=== PATIENT | female | born 1990 | race Caucasian/White ===

== ENCOUNTER 2016-08-08 16:47 | Emergency (ER) | payer OTHER ==
[~2016-08-08] VITALS: Wt 64.0 kg
[~2016-08-08 16:47] MED LIST: NO MEDS
[2016-08-08 17:17] LABS: URINE BLOOD (Dip) POC 2+ (NEGATIVE)
[2016-08-08] MEDS ORDERED: PHEN-538 PO (17:48)
[2016-08-08] MEDS ORDERED: CEPH-443 PO (17:48)
--- NOTE | 2016-08-08 17:50 | ERD ---
ER Documentation Chief Complaint Date/Time DATE: 08/08/16 TIME: 17:49 Chief Complaint DYSURIA FOR THE PAST FEW DAYS. NO N/V. NO DIARRHEA . NO BACK PAIN HPI This 25-year-old female presents with dysuria for 3 days and urgency. She denies fevers, vomiting, flank pain, abdominal pain. ROS All systems reviewed and are negative except as per history of present illness. Medications Home Meds Active Scripts Phenazopyridine Hcl* (Pyridium*) 200 Mg Tab, 200 MG PO TID Y for URINARY PAIN, # 6 TAB Prov:WENDI BOWMNA MD 08/08/16 Cephalexin* (Keflex*) 500 Mg Capsule, 500 MG PO QID for 5 Days, CAP Prov:WENDI BOWMAN MD 08/08/16 Reported Medications [No Meds] No Conflict Check 07/03/12 Allergies Allergies: Coded Allergies: No Known Allergy (Verified , 07/03/12) PMhx/Soc History of Surgery: No Anesthesia Reaction: No Hx Neurological Disorder: No Hx Respiratory Disorders: No Hx Cardiac Disorders: No Hx Psychiatric Problems: No Hx Miscellaneous Medical Probl: No Hx Alcohol Use: No Hx Substance Use: No Hx Tobacco Use: Yes Smoking Status: Never smoker Physical Exam Vitals Vital Signs Date Time Temp Pulse Resp B/P Pulse Ox O2 Delivery O2 Flow Rate FiO2 08/08/16 16:52 98.5 86 20 105/62 99 Physical Exam Const: [] Alert, [id number] Head: Atraumatic Eyes: Normal Conjunctiva ENT: Normal External Ears, Nose and Mouth. Neck: Full range of motion..~ No meningismus. Resp: Clear to auscultation bilaterally Cardio: Regular rate and rhythm, no murmurs Abd: Soft, non tender, non distended. Normal bowel sounds Skin: No petechiae or rashes Back: No midline or flank tenderness Ext: No cyanosis, or edema Neur: Awake and alert Psych: Normal Mood and Affect Results 24 hrs Laboratory Tests Test 08/08/16 17:21 Bedside Urine Blood 2+ Bedside Urine Glucose (UA) Negative Bedside Urine Ketones (LAB) Negative Bedside Urine Leukocyte Esterase (L 2+ Bedside Urine Nitrite (LAB) Negative Bedside Urine Protein (LAB) 2+ Bedside Urine pH (LAB) 6.0 Current Medications Medications (Trade) Dose Ordered Sig/Faizan Route PRN Reason Start Time Stop Time Status Last Admin Dose Admin Cephalexin (Keflex) 500 mg ONCE ONCE PO 08/08/16 18:00 08/08/16 18:01 Phenazopyridine HCl (Pyridium) 200 mg ONCE ONCE PO 08/08/16 18:00 08/08/16 18:01 Procedures/MDM Urine shows positive leukocytes and hemoglobin. Nitrites and glucose are negative. HCG is negative. Patient was given Keflex and Pyridium here in the ED L be discharged home with a course of Keflex, Pyridium, instructions for clear fluids and instructions to return for fevers, vomiting, new worsening symptoms. There is no current evidence to suggest pyelonephritis or sepsis. The patient was stable with no new complaints during the ER course. Clinically, there is no current evidence to suggest meningitis, sepsis, acute abdomen, pneumonia, acute coronary syndrome, pulmonary embolism, or any other emergent condition appearing to require further evaluation or hospitalization. The patient should certainly return for any new or worsening symptoms per the aftercare instructions. They should otherwise follow-up with her primary care doctor for reevaluation this week. Departure Diagnosis: Primary Impression: Cystitis Condition: Stable Patient Instructions: Cystitis Additional Instructions: Urine shows infection today. Drink plenty of fluids. Recheck for fevers, vomiting, new or worsening symptoms WENDI BOWMAN MD Aug 08, 2016 17:50
[2016-08-08] MEDS ORDERED: PHENAZOPYRIDINE 100 MG TAB PO ONE (18:00)
[2016-08-08] MEDS ORDERED: CEPHALEXIN 500 MG CAP PO ONE (18:00)
== END 2016-08-08 18:02 | disposition home or self-care (01) ==
LOC: FTE 16:47
DX: N30.90 Cystitis, unspecified without hematuria (principal); Z87.891 Personal history of nicotine dependence
CPT/HCPCS: 81003; Z7502; Z7610; 99283

== ENCOUNTER 2016-12-06 12:40 | Emergency (ER) | END 2016-12-06 14:21 | disposition home or self-care (01) | DX: N30.00 Acute cystitis without hematuria (principal); F17.210 Nicotine dependence, cigarettes, uncomplicated | CPT/HCPCS: 81003; Z7502 ==

== ENCOUNTER 2017-02-05 04:35 | Emergency (ER) | payer OTHER ==
[~2017-02-05] VITALS: Wt 64.0 kg
[~2017-02-05 04:35] MED LIST changes: +CEPH-443 PO; +NITR-58 PO; +PHEN-538 PO
[2017-02-05] MEDS ORDERED: ACETAMINOPHEN 500 MG TAB PO STA (05:00)
[2017-02-05 05:37] LABS: URINE BLOOD (Dip) POC 3+ (NEGATIVE)
[2017-02-05] MEDS ORDERED: ACET325T33 PO (05:54)
[2017-02-05 06:23] LABS: ADD UMIC YES; UR ASCORBIC ACID NEGATIVE (NEGATIVE); UR BACTERIA FEW /HPF (NONE SEEN); UR BILIRUBIN (Dip) NEGATIVE (NEGATIVE); UR BLOOD (Dip) 3+ mg/dL (NEGATIVE); UR CLARITY CLOUDY (CLEAR); UR COLOR YELLOW (YELLOW); UR GLUCOSE (Dip) NEGATIVE (NEGATIVE); UR KETONES (Dip) NEGATIVE (NEGATIVE); UR LEUKOCYTE ESTERASE (Dip) 1+ Leu/ul (NEGATIVE); UR MUCUS FEW /HPF (NONE SEEN); UR NITRITE (Dip) NEGATIVE (NEGATIVE); UR RBC 7 /HPF (0-5); UR SPECIFIC GRAVITY (Dip) 1.025 (1.003-1.030); UR SQUAMOUS EPITHELIAL CELL MANY /HPF (FEW); UR TOTAL PROTEIN (Dip) NEGATIVE (NEGATIVE); UR UROBILINOGEN (Dip) NEGATIVE (NEGATIVE)
--- NOTE | 2017-02-07 20:17 | ERA ---
ER Documentation Chief Complaint Date/Time DATE: 02/07/17 TIME: 20:15 Chief Complaint Pelvic Pain and Vaginal Bleed HPI 26-year-old female presents to the emergency department with pelvic pain that started a couple hours prior to being seen has resolved now, patient states the pain is mild. Patient says that she is currently on her menstrual period. Patient denies any sexual activity at this time, denies any vaginal discharge. Denies fevers. Denies any nausea vomiting diarrhea constipation ROS All systems reviewed and are negative except as per history of present illness. Medications Home Meds Active Scripts Acetaminophen* (Tylenol*) 325 Mg Tablet, 2 TAB PO Q4 Y for PAIN AND OR ELEVATED TEMP, #20 TAB Prov:ROMAINE MOHAMUD PA-C 02/05/17 Nitrofurantoin Monohyd Macrocr* (Macrobid*) 100 Mg Capsr, 100 MG PO BID for 7 Days, CAP Prov:BALTAZAR DRISCOLL PA-C 12/06/16 Phenazopyridine Hcl* (Pyridium*) 200 Mg Tab, 200 MG PO TID Y for URINARY PAIN, # 6 TAB Prov:WENDI BOWMAN MD 08/08/16 Cephalexin* (Keflex*) 500 Mg Capsule, 500 MG PO QID for 5 Days, CAP Prov:WENDI BOWMAN MD 08/08/16 Reported Medications [No Meds] No Conflict Check 07/03/12 Allergies Allergies: Coded Allergies: No Known Allergy (Verified , 07/03/12) PMhx/Soc History of Surgery: Yes () Anesthesia Reaction: No Hx Neurological Disorder: No Hx Respiratory Disorders: No Hx Cardiac Disorders: No Hx Psychiatric Problems: No Hx Miscellaneous Medical Probl: No Hx Alcohol Use: No Hx Substance Use: No Hx Tobacco Use: Yes Smoking Status: Light tobacco smoker Physical Exam Vitals Vital Signs Date Time Temp Pulse Resp B/P Pulse Ox O2 Delivery O2 Flow Rate FiO2 02/05/17 04:48 97.7 65 20 104/52 99 Physical Exam Const: [] Head: Atraumatic Eyes: Normal Conjunctiva ENT: Normal External Ears, Nose and Mouth. Neck: Full range of motion..~ No meningismus. Resp: Clear to auscultation bilaterally Cardio: Regular rate and rhythm, no murmurs Abd: Soft, non tender, non distended. Normal bowel sounds Skin: No petechiae or rashes Back: No midline or flank tenderness Ext: No cyanosis, or edema Neur: Awake and alert Psych: Normal Mood and Affect Results 24 hrs Laboratory Tests Test 02/05/17 05:10 02/05/17 05:43 Urine Color YELLOW Urine Clarity CLOUDY Urine pH 5.0 Urine Specific [place] 1.025 Urine Ketones NEGATIVEmg/dL Urine Nitrite NEGATIVEmg/dL Urine Bilirubin NEGATIVEmg/dL Urine Urobilinogen NEGATIVEmg/dL Urine Leukocyte Esterase 1+Malini/ul Urine Microscopic RBC 7/HPF Urine Microscopic WBC 12/HPF Urine Squamous Epithelial Cells MANY/HPF Urine Calcium Oxalate Crystals MANY/HPF Urine Bacteria FEW/HPF Urine Mucus FEW/HPF Urine Hemoglobin 3+mg/dL Urine Glucose NEGATIVEmg/dL Urine Total Protein NEGATIVEmg/dl Bedside Urine pH (LAB) 5.5 Bedside Urine Protein (LAB) 1+ Bedside Urine Glucose (UA) Negative Bedside Urine Ketones (LAB) Negative Bedside Urine Blood 3+ Bedside Urine Nitrite (LAB) Negative Bedside Urine Leukocyte Esterase (L Trace Current Medications Medications (Trade) Dose Ordered Sig/Faizan Route PRN Reason Start Time Stop Time Status Last Admin Dose Admin Acetaminophen (Tylenol Tab) 1,000 mg ONCE STAT PO 02/05/17 05:00 02/05/17 05:01 DC 02/05/17 05:16 Procedures/MDM 26-year-old female presents to emergency department with pelvic pain and vaginal bleeding since she is on her menstrual period, I have a low suspicion for ovarian torsion, urinary tract infection, ruptured ovarian cyst. Since patient's pain has significantly improved and ultrasound was not done. Urinalysis did not show any evidence of infection. Urine is negative. Patient stable to be discharged home with prescription for Tylenol. I have discussed with her to return to ER for any worsening signs and knows where she understands and agrees this plan Departure Diagnosis: Primary Impression: Acute pain in female pelvis Condition: Stable Patient Instructions: Pelvic Pain, Unknown Cause Referrals: NO PRIMARY,CARE PHYSICIAN Additional Instructions: FOLLOW UP WITH YOUR PRIMARY CARE PHYSICIAN TOMORROW.Return to this facility if you are not improving as expected. Return to this facility if you are not improving as expected. Take all medicines as directed. ROMAINE MOHAMUD PA-C Feb 07, 2017 20:17
== END 2017-02-05 06:17 | disposition home or self-care (01) ==
LOC: FTE 04:35
DX: R10.2 Pelvic and perineal pain (principal); F17.210 Nicotine dependence, cigarettes, uncomplicated
CPT/HCPCS: 81001; Z7502; Z7610; 81003; 99283

== ENCOUNTER 2017-08-15 03:38 | Emergency (ER) | END 2017-08-15 04:15 | disposition home or self-care (01) ==

== ENCOUNTER 2018-09-20 14:27 | Emergency (ER) | payer MEDICAID, OTHER ==
[~2018-09-20] VITALS: Ht 167.6 cm; Wt 58.0 kg
[~2018-09-20 14:27] MED LIST changes: +ACET325T33 PO
[2018-09-20 14:44] VITALS: Ht 167.6 cm; Wt 58.0 kg
[2018-09-20] MEDS ORDERED: CEPH-443 PO (16:16)
[2018-09-20] MEDS ORDERED: IBUP-1561 PO (16:16)
--- NOTE | 2018-09-20 16:18 | ERD ---
ER Documentation Chief Complaint Chief Complaint pt bib self with c/o painful urination since Wednesday HPI 28-year-old female presents with dysuria for the last 4 days. She has complaints of right sided back pain as well. She states that she had a tactile fever but has no fever triage. She denies vomiting, anterior abdominal pain. She denies vaginal discharge or bleeding or . Patient is admitted methamphetamine user. ROS All systems reviewed and are negative except as per history of present illness. Medications Home Meds Active Scripts Ibuprofen* (Motrin*) 400 Mg Tab, 400 MG PO Q6, #15 TAB Prov:WENDI BOWMAN MD 09/20/18 Cephalexin* (Keflex*) 500 Mg Capsule, 500 MG PO BID for 10 Days, CAP Prov:WENDI BOWMAN MD 09/20/18 Acetaminophen* (Tylenol*) 325 Mg Tablet, 2 TAB PO Q4 PRN for PAIN AND OR ELEVATED TEMP, #20 TAB Prov:ROMAINE MOHAMUDC 02/05/17 Nitrofurantoin Monohyd Macrocr* (Macrobid*) 100 Mg Capsr, 100 MG PO BID for 7 Days, CAP Prov:BALTAZAR DRISCOLL PA-C 12/06/16 Phenazopyridine Hcl* (Pyridium*) 200 Mg Tab, 200 MG PO TID PRN for URINARY PAIN, #6 TAB Prov:WENDI BOWMAN MD 08/08/16 Cephalexin* (Keflex*) 500 Mg Capsule, 500 MG PO QID for 5 Days, CAP Prov:WENDI BOWMAN MD 08/08/16 Reported Medications [No Meds] No Conflict Check 07/03/12 Allergies Allergies: Coded Allergies: No Known Allergy (Verified , 07/03/12) PMhx/Soc History of Surgery: Yes () Anesthesia Reaction: No Hx Neurological Disorder: No Hx Respiratory Disorders: No Hx Cardiac Disorders: No Hx Psychiatric Problems: No Hx Miscellaneous Medical Probl: Yes (UTIs) Hx Alcohol Use: Yes (DAILY ETOH DRINKER) Hx Substance Use: No Hx Tobacco Use: Yes Smoking Status: Current every day smoker FmHx Family History: No diabetes, No coronary disease, No other Physical Exam Vitals Vital Signs Date Temp Pulse Resp B/P (MAP) Pulse Ox O2 O2 Flow FiO2 Time Delivery Rate 09/20/18 98.3 96 16 108/61 98 14:44 (77) Physical Exam Const: No acute distress Head: Atraumatic Eyes: Normal Conjunctiva ENT: Normal External Ears, Nose and Mouth. Neck: Full range of motion. No meningismus. Resp: Clear to auscultation bilaterally Cardio: Regular rate and rhythm, no murmurs Abd: Soft, non tender, non distended. Normal bowel sounds Skin: No petechiae or rashes Back: No midline or flank tenderness with minimal tenderness right L2-L3 paraspinous area. No gross flank tenderness. Ext: No cyanosis, or edema Neur: Awake and alert Psych: Normal Mood and Affect Results 24 hrs Laboratory Tests Test 09/20/18 15:36 09/20/18 15:39 POC Beta HCG, Qualitative NEGATIVE Urine Color YELLOW Urine Clarity CLOUDY Urine pH 6.0 Urine Specific [place] 1.009 Urine Ketones NEGATIVE mg/dL Urine Nitrite NEGATIVE mg/dL Urine Bilirubin NEGATIVE mg/dL Urine Urobilinogen 2+ mg/dL Urine Leukocyte Esterase 3+ Malini/ul Urine Microscopic RBC 12 /HPF Urine Microscopic WBC > 182 /HPF Urine Squamous Epithelial Cells MODERATE /HPF Urine Bacteria MANY /HPF Urine Mucus FEW /HPF Urine Hemoglobin 3+ mg/dL Urine Glucose NEGATIVE mg/dL Urine Total Protein 1+ mg/dl Current Medications Medications Dose Sig/Faizan Start Time Status Last (Trade) Ordered Route PRN Stop Time Admin Dose Reason Admin Ceftriaxone 1 gm ONCE ONCE 09/20/18 Sodium IM 16:30 (Rocephin) 09/20/18 16:31 Lidocaine 5 ml ONCE ONCE 09/20/18 (Xylocaine INFIL 16:30 1% (Mpf)) 09/20/18 16:31 Procedures/MDM hCG negative. Patient had a UA which showed white blood cells, leukocyte esterase, hemoglobin. There is no ketones and specific gravity is not concentrated. She presents with dysuria for the last 4 days. She has flank pain but no SIRS criteria, fever, or abnormal vitals. She appears appropriate for outpatient treatment. She is well-appearing, ambulatory without concerning signs or symptoms. She was administered Rocephin 1 g IM will be treated with Keflex, ibuprofen, instructions for fluids, return precautions for fevers, vomiting, abdominal pain, new worsening symptoms. Doubt PID or tubo-ovarian abscess. There is no signs of acute abdomen. The patient was stable with no new complaints during the ER course. Clinically, there is no current evidence to s uggest meningitis, sepsis, acute abdomen, pneumonia, stroke, acute coronary syndrome, pulmonary embolism, aortic dissection or any other emergent condition appearing to require further evaluation or hospitalization. Patient counseled regarding my diagnostic impression and care plan. Prior to discharge all questions answered. Pt agrees with treatment plan and understands strict return precautions. Pt is instructed to follow up with primary care provider within 24- 48 hours. Precautionary instructions provided including instructions to return to the ER if not improving or for any worsening or changing symptoms or concerns. Departure Diagnosis: Primary Impression: Flank pain Additional Impression: Dysuria Condition: Stable Patient Instructions: Urinary Tract Infections in Women, Flank Pain, Uncertain Cause Additional Instructions: Drink plenty of fluids at home. Return for continued fevers, vomiting, pain, new or worsening symptoms. WENDI BOWMAN MD Sep 20, 2018 16:18
[2018-09-20] MEDS ORDERED: LIDOCAINE 1% (MPF) 5 ML VIAL INFIL ONE (16:30)
[2018-09-20] MEDS ORDERED: CEFTRIAXONE 1 GM INJ IM ONE (16:30)
[2018-09-20 16:40] VITALS: BP 116/54; PULSE 86; RESP 16
== END 2018-09-20 16:41 | disposition home or self-care (01) ==
LOC: FTE 14:27
DX: R10.9 Unspecified abdominal pain (principal); F17.210 Nicotine dependence, cigarettes, uncomplicated; R30.0 Dysuria
CPT/HCPCS: 81001; 81025; 96372; J0696; Z7502; Z7610